=== PATIENT | female | born 1965 | race Caucasian/White ===

== ENCOUNTER 2024-06-12 04:20 | Day surgery (SDC) | payer BC ==
[2024-06-11 11:01] VITALS: BMI 28.8
[2024-06-12] MEDS ORDERED: PROPOFOL 20 ML ONE ×3 (07:31→08:58)
[2024-06-12] MEDS ORDERED: MIDAZOLAM HCL 2 MG/2 ML SINGLE DOSE VIAL ONE (07:59)
[2024-06-12] MEDS: LACTATED RINGERS SOLUTION 1,000 ML IV SCH (10:26)
[2024-06-12] MEDS: MISOPROSTOL 200 MCG TABLET PO ONE (10:44)
[2024-06-12 10:48] LABS: CHLORIDE 114 mmol/L (98-107); POTASSIUM 3.3 mmol/L (3.5-5.1); SODIUM 144 mmol/L (136-145)
[2024-06-12 10:50] LABS: ANION GAP 7 mmol/L (4-13); BLOOD UREA NITROGEN 12.1 mg/dL (7-18); CO2 24 mmol/L (21-32); GLUCOSE,RANDOM 95 mg/dL (74-106)
[2024-06-12 10:53] LABS: CREATININE 0.6 mg/dL (0.55-1.3); SGOT/AST 14 U/L (15-37); SGPT/ALT 13 U/L (13-61)
[2024-06-12 10:54] LABS: BILIRUBIN,TOTAL 0.3 mg/dL (0.2-1)
[2024-06-12 11:03] LABS: ALBUMIN 2.3 g/dl (3.4-5.0); ALK PHOS 34 U/L (45-117); CALCIUM 6.5 mg/dL (8.5-10.1); TOT PROT 4.1 g/dl (6.4-8.2)
[2024-06-12 12:43] VITALS: TEMP 97.7
[2024-06-12 13:39] VITALS: BP 110/50; PULSE 64; RESP 17
== END 2024-06-12 13:55 | disposition home or self-care (01) ==
LOC: JASU-SURG 04:20
PROVIDERS: ATTEND Obstetrics & Gynecology
PROC: 0UB98ZZ Excision of Uterus, Via Natural or Artificial Opening Endoscopic (ICD-10-PCS; principal; 2024-06-12 08:00)
PROC: 0UDB8ZX Extraction of Endometrium, Via Natural or Artificial Opening Endoscopic, Diagnostic (ICD-10-PCS; 2024-06-12 08:00)
DX: N93.8 Other specified abnormal uterine and vaginal bleeding (principal); D25.0 Submucous leiomyoma of uterus; N95.8 Other specified menopausal and perimenopausal disorders; I10 Essential (primary) hypertension
CPT/HCPCS: 36415; 80053; 88305-TC; 94760